=== PATIENT | female | born 2000 | race Caucasian/White ===

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

== ENCOUNTER 2022-05-09 17:24 | Emergency (ER) | payer MEDICAID ==
[2022-05-09] MEDS ORDERED: Aluminum Hydroxide/Magnesium Hydroxide Susp 30 ML Cup PO STA (17:28)
== END 2022-05-09 18:05 | disposition home or self-care (01) ==
LOC: FB.ED 17:24
DX: K29.00 Acute gastritis without bleeding (principal)
CPT/HCPCS: 99283; A9270

== ENCOUNTER 2022-08-27 05:35 | Emergency (ER) | payer MEDICAID ==
[2022-08-27] MEDS ORDERED: Ondansetron 4 MG Tab.DIS PO ONE (05:49)
[2022-08-27] MEDS ORDERED: Pantoprazole 40 MG Tab.CR PO STA (05:49)
== END 2022-08-27 06:58 | disposition home or self-care (01) ==
LOC: FB.ED 05:35
DX: G43.909 Migraine, unspecified, not intractable, without status migrainosus (principal)
CPT/HCPCS: 99283; A9270; Q0162

== ENCOUNTER 2022-11-18 08:29 | Day surgery (SDC) | payer MEDICAID, OTHER ==
[2022-11-18] MEDS ORDERED: Sodium Chloride 0.9% 10 ML Syringe FLUSH PRN (08:30)
[2022-11-18] MEDS ORDERED: Lidocaine 2% 5 ML SDV INJECT ONE (08:30)
[2022-11-18] MEDS ORDERED: Propofol 200 MG/20 ML SDV IV ONE (08:30)
[2022-11-18] MEDS: Lactated Ringers 1,000 ML IV SCH (09:18)
== END 2022-11-18 10:38 | disposition home or self-care (01) ==
LOC: FB.SDS 08:29
PROVIDERS: ATTEND Surgery
DX: K29.50 Unspecified chronic gastritis without bleeding (principal); Z79.899 Other long term (current) drug therapy
CPT/HCPCS: 00731-QZ; 88305; 88342; J2704; J7120

== ENCOUNTER 2023-02-21 22:58 | Emergency (ER) | payer OTHER | END 2023-02-22 00:06 | disposition home or self-care (01) | LOC: FB.ED 22:58 | DX: S39.012A Strain of muscle, fascia and tendon of lower back, initial encounter (principal) | CPT/HCPCS: 81001; 99283 ==

== ENCOUNTER 2023-08-23 22:45 | Emergency (ER) | payer MEDICAID, OTHER ==
[2023-08-23] MEDS ORDERED: Sodium Chloride 0.9% 1,000 ML IV ONE (22:59)
[2023-08-23 23:46] LABS: BILIRUBIN,URINE NEGATIVE (NEGATIVE); GLUCOSE,URINE NORMAL (NORMAL); KETONES,URINE NEGATIVE (NEGATIVE); LEUKOCYTE ESTERASE,URINE SMALL (NEGATIVE); NITRITE,URINE NEGATIVE (NEGATIVE); OCCULT BLOOD,URINE LARGE (NEGATIVE); PROTEIN,URINE NEGATIVE (NEGATIVE); UROBILINOGEN,URINE NORMAL (NEGATIVE)
[2023-08-23 23:53] LABS: APPEARANCE,URINE SLIGHTLY CLOUDY (CLEAR); BACTERIA,URINE FEW (NS); COLOR,URINE YELLOW (YELLOW); SQUAMOUS EPITHELIAL CELLS,UR MODERATE (NS,R,O)
[2023-08-24] MEDS ORDERED: Nitrofurantoin Monohydrate/Macrocrystalline 100 MG Cap PO ONE (00:27)
== END 2023-08-24 00:45 | disposition home or self-care (01) ==
LOC: FB.ED 22:45
DX: N39.0 Urinary tract infection, site not specified (principal); Z79.899 Other long term (current) drug therapy
CPT/HCPCS: 81001; 87086; 87088; 87186; 99283; A9270-GY